=== PATIENT | female | born 1960 | race Caucasian/White ===

== ENCOUNTER 2016-11-04 12:00 | Emergency (ER) | payer OTHER ==
--- NOTE | 2016-11-04 12:03 | PDOC ---
History of Present Illness - General Chief Complaint: Pain Stated Complaint: RT THIGH PAIN Time Seen by Provider: 11/04/16 12:03 - History of Present Illness Initial Comments: 11/04/16 13:20 Pt presents to the ED complaining of a two week history of constant atraumatic R thigh pain that is worse with walking. Describes pain as a "pulling sensation " and reports that it starts in the middle of her upper thigh and radiates to the groin. Denies fever, nausea and vomiting. Denies redness of her skin or tenderness of the thigh. Denies calf pain. History of a knee replacement several years ago. Past History - Past Medical History Allergies/Adverse Reactions: Allergies Allergy/AdvReac Type Severity Reaction Status Date / Time ampicillin Allergy "RASH" Verified 09/18/12 07:24 Penicillins Allergy Verified 11/04/16 12:02 Home Medications: Ambulatory Orders Zolpidem Tartrate [Ambien] 5 mg PO HS #0 tablet 09/20/12 Amlodipine Bes/Olmesartan Med [Amlodipine-Olmesartan 10-40 mg] 1 each PO DAILY 11/04/16 Nitrofurantoin Macrocrystal [Nitrofurantoin] mg PO BID 11/04/16 Comment:: 11/04/16 13:34 knee replacement - Psycho/Social/Smoking Cessation Hx Smoking History: Never smoked Have you smoked in the past 12 months: No Hx Alcohol Use: Yes (OCCAS) Drug/Substance Use Hx: No Substance Use Type: Alcohol Review of Systems - Review of Systems Constitutional: No: Symptoms Reported, See HPI, Chills, Diaphoresis, Fever, Loss of Appetite, Malaise, Night Sweats, Weakness, Weight Stable, Unintentional Wgt. Loss, Unexplained wgt Loss, Other Respiratory: No: Symptoms reported, See HPI, Cough, Orthopnea, Shortness of Breath, SOB with Exertion, SOB at Rest, Stridor, Wheezing, Productive cough, Hemoptysis, Other ABD/GI: No: Symptoms Reported, See HPI, Abdominal Distended, Abd. Pain w/ defecation, Blood Streaked Bowels, Constipated, Diarrhea, Difficulty Swallowing , Nausea, Poor Appetite, Poor Fluid Intake, Rectal Bleeding, Vomiting, Indigestion, Abdominal cramping, Tarry Stools, Other Musculoskeletal: Yes: Muscle Pain. No: Symptoms Reported, See HPI, Back Pain, Gout, Joint Pain, Joint Swelling, Muscle Weakness, Neck Pain, Joint Stiffness, Other All Other Systems: Reviewed and Negative *Physical Exam - Physical Exam General Appearance: Yes: Appropriately Dressed HEENT: positive: Normal ENT Inspection, Normal Voice Neck: positive: Supple Respiratory/Chest: positive: Lungs Clear, Normal Breath Sounds Cardiovascular: positive: Regular Rhythm, Regular Rate Gastrointestinal/Abdominal: positive: Normal Bowel Sounds. negative: Tender, Flat, Soft, Organomegaly, Pulsatile Mass, Increased Bowel Sounds, Decreased BS, Protuberent, Distended, Guarding, Rebound, Tenderness, Hernia, Mass, Hepatomegaly, Spleenomegaly, Other Medical Decision Making - Medical Decision Making 11/04/16 13:05 Patient presents to the ED complaining of two week history of atraumatic R leg pain. No signs of infection on exam, full ROM at all joints. Duplex is negative for DVT. WIll discharge patient home with follow up with her PMD. 11/04/16 13:35 *DC/Admit/Observation/Transfer Diagnosis at time of Disposition: Leg pain Qualifiers: Laterality: right Qualified Code(s): M79.604 - Pain in right leg - Discharge Dispostion Disposition: HOME Condition at time of disposition: Good Admit: No - Referrals Referrals: Car Calle [Primary Care Provider] - - Patient Instructions Printed Discharge Instructions: DI for Leg Pain Additional Instructions: return to the ED for pain with fever, red, hot, tender swollen knee, hip or leg. We did not find a cause for your pain today. The ultrasound was negative for blood clot. You must follow up with your primary care doctor so that he can do more tests to help find the cause of your pain.
[2016-11-04 12:09] VITALS: BP 148/92; PULSE 81; TEMP 98.2; BMI 32.3
== END 2016-11-04 13:31 | disposition home or self-care (01) ==
LOC: FER 12:00
DX: M79.604 Pain in right leg (principal); Z96.659 Presence of unspecified artificial knee joint
CPT/HCPCS: 93971-TC; 99283-25

== ENCOUNTER 2018-11-05 09:16 | Day surgery (SDC) | payer OTHER ==
[2018-10-29 15:25] VITALS: BMI 32.3
--- NOTE | 2018-11-05 10:08 | HP ---
Satellite [facility] - Chief Complaint Chief Complaint: left knee pain - Past Medical History Allergies/Adverse Reactions: Allergies Allergy/AdvReac Type Severity Reaction Status Date / Time ampicillin Allergy "RASH" Verified 10/29/18 15:25 Penicillins Allergy Verified 10/29/18 15:25 - Current Medications Current Medications: Home Medications Medication Instructions Recorded Zolpidem Tartrate [Ambien] 5 mg PO HS #0 tablet 09/20/12 Amlodipine Bes/Olmesartan Med 1 each PO DAILY 11/04/16 [Amlodipine-Olmesartan 10-40 mg] Satellite Physical Exam - Physical Examination General Appearance: Well Nourished, Well Developed, Alert & Oriented x3 ENT: Clear Lung: Normal air movement Heart: Regular rate & rhythm Extremities: Other (left knee- + swelling, + ttp, decr rom, +mcmurrays, nvi, MRI +mt) Neurological: Intact, Alert, Oriented Satellite Impression/Plan - Impression/Plan Impression: left knee internal derangement Operative Procedure: left knee arthroscopy Date to be Performed: 11/05/18
[2018-11-05] MEDS ORDERED: PROPOFOL 20 ML ONE ×2 (10:29→12:17)
[2018-11-05] MEDS ORDERED: ONDANSETRON 4 MG/2 ML VIAL ONE ×2 (10:31→12:50)
[2018-11-05] MEDS ORDERED: LIDOCAINE HCL/PF 2% SDV 5ML VIAL ONE (10:31)
[2018-11-05] MEDS ORDERED: DEXAMETHASONE SOD PHOSPHATE 4 MG/1 ML VIAL ONE (10:31)
[2018-11-05] MEDS ORDERED: LIDOCAINE 1%/EPI 1:100000 (20 ML MULTI DOSE VIAL) ONE (10:54)
[2018-11-05] MEDS ORDERED: BUPIVACAINE HCL/PF 0.5% (5MG/ML) 10 ML VIAL ONE (10:54)
[2018-11-05] MEDS ORDERED: MIDAZOLAM HCL 2 MG/2 ML SINGLE DOSE VIAL ONE (11:00)
[2018-11-05] MEDS ORDERED: BUPIVACAINE HCL/PF 0.5% (5 MG/ML) 30 ML VIAL IJ ONE (11:35)
[2018-11-05] MEDS ORDERED: LIDOCAINE 1%/EPI 1:100000 (20 ML MULTI DOSE VIAL) INF ONE (11:35)
[2018-11-05] MEDS ORDERED: ceFAZolin SODIUM 1 GM VIAL ONE (12:03)
[2018-11-05] MEDS ORDERED: EPHEDRINE SULFATE/0.9% NACL/PF 50 MG/10 ML SYRINGE NR ONE (12:16)
--- NOTE | 2018-11-05 12:30 | OP ---
Operative Note - Note: Operative Date: 11/05/18 (harvey) Pre-Operative Diagnosis: left knee internal derangement Operation: left knee arthroscopy with PMM, debridement chondroplasty MF Post-Operative Diagnosis: Same as Pre-op Surgeon: Eris Alvarenga Anesthesiologist/STORAGE SPECIALIST: Sage Liriano Anesthesia: General, Local Specimens Removed: shavings Estimated Blood Loss (mls): 5 Operative Report Dictated: Yes
[2018-11-05] MEDS ORDERED: PROMETHAZINE HCL 25 MG/1 ML VIAL IVPB PRN (13:04)
[2018-11-05] MEDS ORDERED: ONDANSETRON 4 MG/2 ML VIAL IVPUSH PRN (13:04)
[2018-11-05] MEDS ORDERED: oxyCODONE HCL 5 MG TABLET PO PRN (13:04)
[2018-11-05] MEDS ORDERED: ACETAMINOPHEN 1000 MG/100 ML VIAL (NON FORMULARY) IVPB PRN (13:05)
[2018-11-05] MEDS ORDERED: LACTATED RINGERS SOLUTION 1,000 ML IV SCH (13:15)
[2018-11-05] MEDS ORDERED: PROMETHAZINE HCL 25 MG/1 ML VIAL ONE (13:21)
[2018-11-05 14:20] VITALS: PULSE 70; TEMP 97.9
[2018-11-05 14:45] VITALS: BP 118/76
--- NOTE | 2018-11-06 12:35 | OP ---
DATE OF OPERATION: 11/05/2018 PREOPERATIVE DIAGNOSIS: Internal derangement, left knee. POSTOPERATIVE DIAGNOSIS: Internal derangement, left knee. PROCEDURE: Arthroscopy, left knee, with partial medial meniscectomy. SURGICAL ATTENDING: Eris Alvarenga MD ANESTHESIA: LMA. CLOSURE: 3-0 nylon. COMPLICATIONS: None. CONDITION: To recovery in stable condition. DESCRIPTION OF OPERATIVE PROCEDURE: The patient taken to the operating room on November 05, 2018. General anesthesia with LMA was administered by the anesthesiologist. IV Kefzol was administered prophylactic prior to the case (patient has had a partial knee replacement on the right side). The left lower extremity was prepped and draped in the usual sterile fashion. The medial and lateral infrapatellar portal sites were infiltrated with Xylocaine and epinephrine. The inferolateral portal was then made with a 15-blade for blunt trocar, and the scope was placed through this trocar up into the suprapatellar pouch. The knee was then inflated with a cocktail of 10 mL of 1% Xylocaine, 10 mL of 0.5% Marcaine, and 20 mL of arthroscopic saline. After allowing the anesthetic to work, the procedure was performed. The pouch was visualized to be clean. The medial and lateral gutters were visualized to be clean. The undersurfaces of the patella and trochlea were visualized to be intact. With valgus stress on the knee, the medial compartment was entered, and medial meniscus was found to have a complex tear of its posterior horn. This was debrided back to stable meniscal tissue using a meniscal biter and arthroscopic shaver. The medial femoral condyle had some grade 2-3 changes, but for the most part was intact, as did the medial tibial plateau. At 90 degrees, the ACL was visualized and probed and found to be intact. In a figure-of-4 position, the lateral compartment was entered, and lateral meniscus was visualized, probed, and found to be intact. Lateral femoral condyle was run and found to be completely intact, as was the lateral tibial plateau. The knee was irrigated with copious amounts of irrigation. The knee was then drained of all of its fluid. Both portals were then closed using 3-0 nylon. Prior to pulling the scope trocar, 20 mL of 0.5% Marcaine was infused through the portal for postoperative analgesia. Sterile pressure dressing was placed over the knee. The patient awakened from anesthesia and transferred to recovery in stable condition with no complication. ESTIMATED BLOOD LOSS: Negligible. Allen [id number]
--- NOTE | 2018-11-07 13:19 | PATH ---
Surgical Pathology Report Patient Name: JASON LUNDY [facility]. Rec. #: [id number] /Age/Gender: 1960 (Age: 58) / F Account: [id number] Location: [facility] [place] [facility] Taken: 11/05/2018 Received: 11/05/2018 Reported: 11/07/2018 Physicians: Eris Alvarenga M.D. Specimen(s) Received SHAVINGS LEFT KNEE Clinical History Left knee, internal derangement Final Diagnosis KNEE, LEFT, ARTHROSCOPIC SHAVINGS: CARTILAGE AND FIBROSYNOVIAL TISSUE. Electronically Signed Sophy Campo M.D. Gross Description Received in formalin, labeled "left knee shavings" is a 2.5 x 2 x 0.3 cm portion of light head and yellow-head tissue. Patch Machine Operator tissue is submitted in one cassette. AE/11/06/2018 ebram/11/06/2018
== END 2018-11-05 15:15 | disposition home or self-care (01) ==
LOC: FASU 09:16
PROVIDERS: ATTEND Orthopaedic Surgery
PROC: 0SBD4ZZ Excision of Left Knee Joint, Percutaneous Endoscopic Approach (ICD-10-PCS; principal; 2018-11-05 12:06)
DX: M23.222 Derangement of posterior horn of medial meniscus due to old tear or injury, left knee (principal)
CPT/HCPCS: 88304-TC; 94760

== ENCOUNTER 2023-02-23 08:14 | Day surgery (SDC) | payer OTHER ==
[2023-02-20 11:47] VITALS: BMI 32.3
[2023-02-23 10:06] VITALS: BP 91/54; PULSE 77; RESP 20; TEMP 97.1
== END 2023-02-23 10:35 | disposition home or self-care (01) ==
LOC: JASU-ENDO 08:14
PROVIDERS: ATTEND Internal Medicine Gastroenterology
PROC: 0DBM8ZX Excision of Descending Colon, Via Natural or Artificial Opening Endoscopic, Diagnostic (ICD-10-PCS; principal; 2023-02-23 09:45)
DX: Z12.11 Encounter for screening for malignant neoplasm of colon (principal); D12.4 Benign neoplasm of descending colon; K64.1 Second degree hemorrhoids; K64.8 Other hemorrhoids; Z80.0 Family history of malignant neoplasm of digestive organs
CPT/HCPCS: 88305-TC